=== PATIENT | female | born 1945 ===

== ENCOUNTER → 2016-04-03 | Outpatient (CLI) | payer MEDICARE ==
--- NOTE | 2016-04-03 15:33 | MRI ---
EXAM DESCRIPTION: MRI of the cervical spine CLINICAL HISTORY: Intervertebral disc disorders with radiculopathy COMPARISON: None. TECHNIQUE: Multiplanar MRI of the cervical spine was performed without contrast. GENERAL Cervical vertebral body alignment is unremarkable.Vertebral body heights are maintained. The craniocervical and atlantoaxial junctions are unremarkable. No aggressive osseous lesion. C2-3 No significant findings. C3-4 No significant findings. C4-5 Mild right and moderate left neural foraminal narrowing from facet and uncovertebral joint hypertrophy. 3 mm broad-based posterior disc osteophyte complex. The midline diameter of the spinal canal is narrowed to 9 mm. C5-6 Mild bilateral neural foraminal narrowing. There is a 3 mm broad-based posterior disc osteophyte complex. The midline diameter of the spinal canal is narrowed to 9 mm. C6-7 Mild bilateral neural foraminal narrowing. 2 mm broad-based posterior disc protrusion. The midline diameter of the spinal canal is mildly narrowed to 9 mm. C7-T1 No significant findings. CORD AND INTRASPINAL No cervical cord or intraspinal lesions. IMPRESSION: Today's exam demonstrates degenerative change from C4-5 thru C6-7 with mild spinal canal narrowing at all 3 levels. There is minimal indentation upon the anterior margin the cervical spinal cord at C4-5 along with mild flattening at C5-6. Negative for myelomalacia at any level. Neural foraminal narrowing is also noted at all 3 levels. Electronically signed by: Herve Edouard MD 04/03/2016 15:32
--- NOTE | 2016-04-03 15:38 | MRI ---
EXAM DESCRIPTION: MR LUMBAR SPINE WITHOUT IV CONTRAST CLINICAL HISTORY: 70 y/o F, Intervertebral disc disorders with radiculopathy COMPARISON: None TECHNIQUE: Multi planar, multi sequence imaging of the lumbar spine was acquired without IV contrast. FINDINGS: Schmorl's node noted along the inferior endplate of L1 and L2. Marrow signal and vertebral body height are unremarkable. Disc desiccation at all levels. Subtle dextroscoliosis is noted of the lumbar spine. L1-L2: No spinal canal or neural foraminal narrowing. Anterior osteophytes noted. L2-L3: Mild facet degeneration. No spinal canal or neural foraminal narrowing. Anterior osteophytes are noted. L3-4: Moderate facet degeneration and ligamentum flavum thickening. There is a circumferential disk bulge noted with posterior central annular tear. The midline diameter of the spinal canal is narrowed to 7 mm. Bilateral neural foramen are likely adequate. L4-5: Mild facet degeneration and ligamentum flavum thickening. The midline diameter of the spinal canal is widely patent measuring 11 mm. Bilateral neural foramen are likely adequate. L5-S1: Mild facet degeneration and ligamentum flavum thickening. There is a mild 2 mm circumferential disc bulge with a slightly more pronounced right lateral recess component. This component contacts and posteriorly deviates the descending right S1 nerve root. The midline diameter of the spinal canal is widely patent measuring 1.3 cm. There is moderate bilateral neural foraminal narrowing with contact the bilateral exiting L5 nerve roots. IMPRESSION: Today's exam demonstrates multilevel degenerative disc and facet disease with spinal canal narrowing at L3-4 in which the AP diameter canal is moderately stenotic measuring 7 mm. At L5-S1 there is narrowing of the right lateral recess and contact of the descending right S1 nerve root. Additionally, there is bilateral neural foraminal narrowing at L5-S1 resulting in contact of the bilateral exiting L5 nerve roots. These findings could account for bilateral L5 and right S1 radiculopathies, if the patient is symptomatic. Electronically signed by: Herve Edouard MD 04/03/2016 15:36
--- NOTE | 2016-04-03 16:36 | CT ---
EXAM DESCRIPTION: Chest CT. CLINICAL HISTORY: Right middle lobe nodule COMPARISON: None. TECHNIQUE: A volumetric CT with IV contrast was acquired and displayed in multiplanar reconstructions. FINDINGS: Mediastinum: Coronary artery disease noted. Visualized lymph nodes are within normal limits for CT size criteria. No acute aortic abnormality, pericardial effusion, or mediastinal mass. Upper Abdomen: Large hiatal hernia noted. Lungs: Mild emphysema noted. Minimal atelectasis seen within the left lung base. There is a 6.5 mm pulmonary nodule noted within the right middle lobe. 5 mm right lower lobe pulmonary nodule. There is bronchovascular bundle thickening seen within the left lower lobe along with narrowing of still for bronchi of the left lower lobe. Bones: No suspicious bone lesion is seen. IMPRESSION: Today's exam demonstrates 2 nodules measuring between 5 and 7 mm in diameter. Please refer to the followup suggestions below based on patient risk. There is bronchovascular bundle thickening seen within the left lung base along with narrowing of multiple left lower lobe bronchi. This could be related to a mucous plug; however, given patient's emphysema direct visualization is suggested to rule out the possibility of an obstructing neoplasm. Coronary artery disease. Moderate size hiatal hernia. As per Fleischner Society guidelines for follow-up and management of pulmonary nodules: For patient at low risk (minimal or absent history of smoking and of other known risk factors), recommend follow-up chest CT at 6-12 months then at 18-24 months if no change. For patient at high risk (history of smoking or of other known risk factors), recommend initial follow-up chest CT at 3-6 months, then at 9-12 and 24 months if no change. Electronically signed by: Herve Edouard MD 04/03/2016 16:35
== END | disposition home or self-care (01) ==
LOC: MRI 13:12
PROVIDERS: ATTEND Psychiatry & Neurology Neurology
DX: M51.16 Intervertebral disc disorders with radiculopathy, lumbar region (principal); M50.122 Cervical disc disorder at C5-C6 level with radiculopathy; R91.1 Solitary pulmonary nodule

== ENCOUNTER → 2016-10-04 | Outpatient (CLI) | payer MEDICARE ==
--- NOTE | 2016-10-05 08:31 | MRI ---
EXAM DESCRIPTION: Lumbar Spine w/o Contrast CLINICAL HISTORY: INTERVERTEBRAL DISC DISPLACEMENT. Low back pain radiating into both legs. COMPARISON: MRI lumbar spine 04/03/2016 TECHNIQUE: MRI of the lumbar spine is performed according to our usual protocol with axial and sagittal multi sequence imaging. FINDINGS: The designated L5-S1 disc space is on axial T2 image 3. Mild dextroconvex curvature of the mid lumbar spine. Schmorl's nodes along the inferior L1 and L2 endplates. Vertebral body stature is maintained. Multilevel anterolateral disc bulges with associated osteophytes. There is no acute fracture or destructive osseous lesion. The conus medullaris terminates normally. L1-2: Disc desiccation with mild disc narrowing. No significant posterior disc bulge, spinal canal, or neural foraminal stenosis. L2-3: Disc desiccation with mild disc narrowing. Mild facet hypertrophy with ligamentum flavum thickening. 2 mm posterior disc osteophyte complex with no spinal canal or neural foraminal stenosis. L3-4: Disc desiccation with moderate disc narrowing. Moderate facet hypertrophy with ligamentum flavum thickening. 3 mm posterior disc osteophyte complex with [id number] spinal canal stenosis is again demonstrated. Residual AP diameter of the canal is 7.5 mm. Mild to moderate bilateral neural foraminal stenosis. L4-5: Disc desiccation. Moderate facet hypertrophy with ligamentum flavum thickening. 3 mm posterior disc osteophyte complex with mild bilateral neural foraminal stenosis again demonstrated. The spinal canal is patent. L5-S1: Disc desiccation with mild posterior disc narrowing. Moderate facet hypertrophy with ligamentum flavum thickening. A 4 mm posterior disc osteophyte complex is demonstrated, which is slightly eccentric to the right. Mild to moderate right lateral recess narrowing again demonstrated, where disc material contacts the transiting right S1 nerve root. Moderate bilateral neural foraminal stenosis. Material abuts both exiting L5 nerve roots. The spinal canal is patent.. IMPRESSION: 1. Grossly stable multilevel disc degeneration and facet degenerative changes throughout the lumbar spine as described above. At L3-L4, mild to moderate spinal canal stenosis and mild to moderate bilateral neural foraminal stenosis are again demonstrated. 2. At L5-S1, there is moderate right lateral recess narrowing and moderate bilateral neural foraminal stenosis. 3. Other findings as above. Electronically signed by: Bladimir Vallejo MD 10/05/2016 8:29 AM CDT
--- NOTE | 2016-10-05 08:47 | MRI ---
EXAM DESCRIPTION: Cervical Spine CLINICAL HISTORY: CERVICAL DISC DISORDER WITH MYELOPATHY. Neck pain radiating into both shoulders. COMPARISON: None Available. TECHNIQUE: MRI of the cervical spine is performed according to our usual protocol. FINDINGS: Straightening of the normal cervical lordosis, which may be seen with positioning or muscle spasm. Vertebral body stature is maintained. There is no acute fracture or destructive osseous lesion. Craniocervical junction and the cervical spinal cord are unremarkable. C2-3: Disc desiccation. Otherwise no significant findings. C3-4: Disc desiccation. Mild facet hypertrophy. No spinal canal nor foraminal stenosis. C4-5: Disc desiccation with moderate disc narrowing. Mild facet hypertrophy and leftward than right uncovertebral spurring. 2.5 mm leftward eccentric disc osteophyte complex which flattens the ventral aspect of the thecal sac. Mild spinal canal stenosis with residual AP diameter of the thecal sac measuring 8.4 mm. Severe left and moderate right neural foraminal stenosis. C5-6: Disc desiccation with severe disc narrowing. Moderate uncovertebral spurring and mild facet hypertrophy. 3 mm posterior disc osteophyte complex which effaces the ventral aspect of the thecal sac. Moderate spinal canal stenosis is present with residual AP diameter of the thecal sac measuring 7.6 mm. Severe left and moderate right neural foraminal stenosis. C6-7: Disc desiccation with severe disc narrowing. Mild facet hypertrophy and mild uncovertebral spurring. 2 mm posterior disc ossify complex with mild spinal canal stenosis. Residual AP diameter of the thecal sac is 8.8 mm. Moderate bilateral neural foraminal stenosis. C7-T1: Disc desiccation. Mild facet hypertrophy with no spinal canal nor foraminal stenosis. IMPRESSION: 1. Multilevel spondylitic and facet degenerative changes throughout the cervical spine as described above. The findings are most pronounced at C5-C6 where there is moderate spinal canal stenosis, severe left neural foraminal stenosis, and moderate right neural foraminal stenosis. 2. At C4-C5, there is mild spinal canal stenosis, severe left neural foraminal stenosis, and moderate right neural foraminal stenosis. 3. At C6-C7, there is mild spinal canal stenosis and moderate bilateral neural foraminal stenosis. 4. Other findings as above. Electronically signed by: Bladimir Vallejo MD 10/05/2016 8:46 AM CDT
== END | disposition home or self-care (01) ==
LOC: MRI 11:07
PROVIDERS: ATTEND Psychiatry & Neurology Neurology
DX: M50.01 Cervical disc disorder with myelopathy, high cervical region (principal); M51.26 Other intervertebral disc displacement, lumbar region; M50.122 Cervical disc disorder at C5-C6 level with radiculopathy; M51.16 Intervertebral disc disorders with radiculopathy, lumbar region

== ENCOUNTER → 2016-11-21 | Outpatient (CLI) | payer MEDICARE ==
--- NOTE | 2016-11-22 14:31 | CT ---
EXAM DESCRIPTION: Chest w/Contrast CLINICAL HISTORY: NODULES . Follow-up for pulmonary nodules. COMPARISON: CT chest 04/03/2016 TECHNIQUE: Multiple axial images of the chest following intravenous contrast. Multiplanar reconstructions were provided. This exam was performed according to our departmental dose-optimization program, which includes automated exposure control, adjustment of the mA and/or kV according to patient size and/or use of iterative reconstruction technique. FINDINGS: Lungs: Mild emphysema. 6 mm right lower lobe pulmonary nodule on series 4 image 68 is unchanged compared to the prior exam. 7 mm right middle lobe pulmonary nodule on image 83 is also unchanged. No new pulmonary nodule or pleural effusion. Mediastinum: The heart is enlarged. There is a large hiatal hernia demonstrated. Moderate atherosclerotic plaque in the aortic arch and in the coronary arteries. The trachea is unremarkable. Lymph nodes: There are no pathologically enlarged lymph nodes by CT size criteria. Chest wall and lower neck: There is a 1.7 cm nodule in the left thyroid lobe. Bones: Mild multilevel thoracic spondylosis. No acute osseous abnormality. Upper abdomen: Unremarkable. IMPRESSION: 1. Emphysema with stable pulmonary nodules measuring up to 7 mm. Follow-up per guidelines below. 2. Hypodense 1.7 cm nodule in the left thyroid lobe. Follow-up thyroid ultrasound recommended for further evaluation. 3. Large hiatal hernia. 4. Coronary artery atherosclerosis. 5. Other findings as above. 2017 Fleischner Society Recommendations for Multiple Solid Lung Nodules Follow-Up base on size (average of long- and short-axis diameters). Use most suspicious nodule for followup. Nodule Size 6-8 mm High-Risk Patient: CT at 3-6 months then at 18-24 months Electronically signed by: Bladimir Vallejo MD 11/22/2016 2:30 PM CDT
== END | disposition home or self-care (01) ==
LOC: CT 08:57
PROVIDERS: ATTEND Internal Medicine Pulmonary Disease
DX: R91.8 Other nonspecific abnormal finding of lung field (principal)

== ENCOUNTER → 2017-01-29 | Outpatient (CLI) | payer MEDICARE ==
--- NOTE | 2017-01-30 08:06 | RAD ---
EXAM DESCRIPTION: Cervical Spine,3 Views CLINICAL HISTORY: 71 years Female, SPINAL STENOSIS COMPARISON: None. FINDINGS: 3 views of the cervical spine show postoperative changes related previous anterior cervical discectomy and fusion at the C5-6 level. No hardware complication is seen. There is no prevertebral soft tissue swelling or gas. No vertebral body fracture or malalignment. Degenerative disc disease is noted at C6-7. Soft tissue calcifications in both sides of the neck are likely of vascular origin. IMPRESSION: Postoperative changes related to previous ACDF at C5-6 without apparent hardware or other surgical complication. Degenerative changes including degenerative disc disease at C6-7. Bilateral carotid artery disease. Ultrasound should be considered for further evaluation. Electronically signed by: Jorge Diamond MD 01/30/2017 8:05 AM [facility]
--- NOTE | 2017-01-30 08:13 | RAD ---
EXAM DESCRIPTION: Cervical Spine,Flex/Ext CLINICAL HISTORY: 71 years, Female, SPINAL STENOSIS COMPARISON: January 29, 2017 FINDINGS: Flexion extension views demonstrate no evidence of instability. But the C-spine is only seen to C6. C5-6 infiltrates anterior plating with this patient. No evidence hardware failure. Mild mild loss of disc height at C2-4-5. And mild at C3-5-6. No evidence of acute fractures. Mild narrowing dens and arch of C1. IMPRESSION: Flexion-extension views seen to C6 no evidence of instability. There is anterior fusion disc spacer at C5-6 which appears unremarkable mild residual loss of disc height. And mild/moderate disc disease at C4-5. And mild degenerative changes at the dens. Electronically signed by: Elijah Hassan MD 01/30/2017 8:12 AM [facility]
== END | disposition home or self-care (01) ==
LOC: RAD 09:48
PROVIDERS: ATTEND Neurological Surgery
DX: M47.812 Spondylosis without myelopathy or radiculopathy, cervical region (principal); M48.02 Spinal stenosis, cervical region

== ENCOUNTER → 2017-05-01 | Outpatient (CLI) | payer MEDICARE ==
--- NOTE | 2017-05-01 20:34 | MRI ---
EXAM DESCRIPTION: Lumbar Spine w/o Contrast MRI. CLINICAL HISTORY: LUMBAR RADICULOPATHY COMPARISON: MRI scan lumbar spine 10/04/2016. TECHNIQUE: Multiplanar, multiple standard sequences, non contrast MRI, lumbar spine. FINDINGS: L5-S1: Disc desiccation. Minimal disc space loss. Anterior Modic type II endplate reactive changes with disc bulging and endplate spurs. Posterior broad-based disc bulge. Right paracentral 5 mm protrusion abutting the thecal sac and extending into the right subarticular recess impressing on the descending right S1 nerve and the recess is stenotic. Stable since the prior study. Borderline right paracentral canal stenosis. Right side endplate reactive changes as well with disc spur complex encroaching on the foramen and borderline right foraminal stenosis. Slightly progressed since the prior study. Moderate narrowing of the left foramen. Minimal facet and ligament hypertrophy. L4-5: Disc desiccation. Minimal bulge into the bilateral foramina and into the right side of the canal 4 mm. Mild foraminal narrowing. Borderline mild right side canal stenosis. Bilateral facet arthrosis and flavum ligament hypertrophy. Bilateral foramina are patent. L3-4: Disc desiccation. Disc space preserved. Posterior broad-based 4 mm disc bulge. Modic type II endplate reactive changes to the left of midline with disc spur complex encroaching on the left foramen and abutting the exiting left L3 nerve. This has progressed since the prior study. Right foramen is patent. Moderate facet arthrosis and flavum ligament hypertrophy with Y-shaped canal and mild canal stenosis, AP diameter 9 mm. Bilateral narrowing of the subarticular recesses with the disc abutting the bilateral descending L4 nerves. Stable since the prior study. L2-3: Disc desiccation and anterior bulging. Schmorl's node in the inferior L2 endplate. Minimal disc bulge into the foramina more on the left than right. Minimal facet arthrosis and ligament hypertrophy more on the left. Mild left foraminal narrowing more left than right. Moderate canal narrowing with left facet/ligament abutting the descending left L3 nerve. No change from the prior study. L1-2: Disc desiccation with no significant posterior bulging. Trace anterior bulging. Schmorl's node inferior L1 endplate. Minimal posterior disc space loss. Minimal flavum ligament hypertrophy and mild canal stenosis. Bilateral foramina are patent. Conus terminates at L1. T12-L1: Normal signal in the disc with no bulging. Bilateral ligament hypertrophy with narrowing of the posterior canal abutting the posterior thecal sac. No disc bulging. Anterior canal and foramina are patent. Paravertebral soft tissues show minimal muscle atrophy. Normal marrow signal in the remaining vertebral bodies and the posterior elements. L1-L4 dextroscoliosis. Vertebral bodies are not compressed at any level. IMPRESSION: 1. Right posterior protrusion of the L5-S1 disc extending into the right subarticular recess and abutting the descending right S1 nerve. Stable since the prior study. Borderline right paracentral canal stenosis. Anterior and right side moderate spondylosis stable. 2. Moderate spondylosis L3-4 to the left of midline with disc spur complex encroaching on the left foramen and abutting the exiting left L3 nerve. This has progressed since the prior study. Canal stenosis stable since the prior study 3. Moderate L2-3 canal narrowing with left facet ligament abutting the descending left L3 nerve above the subarticular recess. Stable since the prior study. 4. Borderline mild right side canal stenosis at L4-5 from disc bulge and flavum ligament hypertrophy stable since the prior study. Electronically signed by: Deion Mclaughlin MD 05/01/2017 8:33 PM CDT Workstation: [id number]
== END ==
LOC: MRI 11:21
PROVIDERS: ATTEND Psychiatry & Neurology Neurology
DX: M51.16 Intervertebral disc disorders with radiculopathy, lumbar region (principal); M51.26 Other intervertebral disc displacement, lumbar region

== ENCOUNTER → 2018-05-10 | Outpatient (CLI) | payer MEDICARE ==
--- NOTE | 2018-05-13 07:51 | MRI ---
Study: MRI of the Cervical Spine. Indication: M54.12, M54.16 Technique: Multiplanar, multi sequence MRI of the cervical spine was obtained without intravenous contrast. Comparison: None. Findings: Vertebral body height maintained. Straightening cervical spine. No marrow infiltrating lesion. Spinal cord normal in caliber and signal. C2-C3: Minimal disc space height loss and disc desiccation. No stenosis. C3-C4: Minimal disc space height loss and disc desiccation. No stenosis. C4-C5: Moderate disc space height loss and disc desiccation. 3 mm left eccentric disc bulge with mild spinal canal narrowing, mid sagittal thecal sac diameter 9 mm. Moderate left and mild right uncovertebral hypertrophy. Severe left and mild right neural foraminal narrowing. Mild bilateral facet arthrosis. C5-C6: ACDF with associated susceptibility artifact. No recurrent protrusion or spinal canal narrowing. Moderate left and mild right uncovertebral hypertrophy with moderate left and mild right neural foraminal narrowing. C6-C7: Moderate disc space height loss and disc desiccation. 2.5 mm disc bulge with mild spinal canal narrowing, mid sagittal thecal sac diameter 9 mm. Moderate bilateral uncovertebral hypertrophy with moderate to severe bilateral neural foraminal narrowing. C7-T1: Minimal disc space height loss and disc desiccation. No spinal canal narrowing. Mild bilateral uncovertebral hypertrophy with mild to moderate left and mild right neural foraminal narrowing. 19 mm left thyroid nodule. Impression: C5-C6 ACDF with moderate left and mild right neural foraminal narrowing at this level. No spinal canal narrowing. Additional multilevel degenerative changes of the cervical spine most pronounced at C4-C5 and C6-C7 where there is mild spinal canal narrowing and varying degrees of bilateral neural foraminal narrowing at each of these levels. 19 mm left thyroid nodule. Further characterization with thyroid sonogram recommended. Electronically signed by: Rancho Loco MD 05/13/2018 7:48 AM CDT
--- NOTE | 2018-05-13 08:06 | MRI ---
Study: MRI of the Lumbar Spine. Indication: RADICULOPATHY Technique: Multiplanar, multi sequence MRI of the lumbar spine was obtained without intravenous contrast. Comparison: May 01, 2017. Findings: The designated L5-S1 disc space level is visualized on axial T2 image 3. Vertebral body height maintained. No marrow infiltrating lesion. Conus medullaris unremarkable. Scattered Schmorl's nodes at the inferior L1-L2 endplates. L1-L2: Mild to moderate disc space height loss and disc desiccation. 2 mm disc bulge. No stenosis. L2-L3: Mild to moderate disc space height loss and disc desiccation. 2 mm left eccentric disc bulge. Mild left and minimal right facet arthrosis and tiny right joint effusion. Mild left and minimal right neural foraminal narrowing. Mild left lateral recess narrowing. No spinal canal narrowing. L3-L4: Mild to moderate disc space height loss and disc desiccation. Trace anterolisthesis. 4 mm disc bulge and subtle posterior annular fissuring. Mild to moderate bilateral neural foraminal narrowing. Mild bilateral lateral recess narrowing. Mild spinal canal narrowing, mid sagittal thecal sac diameter 9 mm. Mild ligament flavum buckling. L4-L5: Mild to moderate disc space height loss and disc desiccation. 3 mm right eccentric disc bulge with mild to moderate right and mild left neural foraminal narrowing. Mild bilateral lateral recess narrowing. Indentation ventral thecal sac without spinal canal narrowing. Mild bilateral facet arthrosis. L5-S1: Moderate to severe right lateral disc space height loss and disc desiccation with patchy Modic type II endplate changes. 4 mm right eccentric disc osteophyte complex with subtle superimposed 3 mm right medial foraminal disc protrusion. Moderate to severe right and moderate left neural foraminal narrowing. The disc contacts the bilateral exiting L5 nerve roots. Mild right lateral recess narrowing. No spinal canal narrowing. Moderate bilateral facet arthrosis. Impression: Stable multilevel degenerative changes of the lumbar spine with changes most pronounced at L3-L4 where there is mild spinal canal narrowing as well as [id number] bilateral neural foraminal narrowing and mild bilateral lateral recess narrowing. Additional findings as above. Electronically signed by: Rancho Loco MD 05/13/2018 8:03 AM CDT
== END ==
LOC: MRI 12:29
PROVIDERS: ATTEND Psychiatry & Neurology Neurology
DX: M50.121 Cervical disc disorder at C4-C5 level with radiculopathy (principal); M50.123 Cervical disc disorder at C6-C7 level with radiculopathy; M43.22 Fusion of spine, cervical region; M51.16 Intervertebral disc disorders with radiculopathy, lumbar region; E04.1 Nontoxic single thyroid nodule